=== PATIENT | female | born 1970 | race Caucasian/White ===

== ENCOUNTER 2017-08-25 11:27 | Emergency (ER) | payer OTHER ==
[~2017-08-25] VITALS: Ht 167.6 cm; Wt 56.7 kg
== END 2017-08-25 17:49 | disposition home or self-care (01) ==
LOC: ER 11:27 → CPU-OBS 11:28 → ER 11:28
DX: R07.89 Other chest pain (principal); F06.4 Anxiety disorder due to known physiological condition; K21.9 Gastro-esophageal reflux disease without esophagitis
CPT/HCPCS: G0379 ×2; 93005